=== PATIENT | female | born 1945 | race Caucasian/White ===

== ENCOUNTER → 2019-11-29 | Outpatient (CLI) | payer MEDICARE ==
--- NOTE | 2019-11-29 13:36 | US ---
EXAMINATION TYPE: US kidneys/renal and bladder DATE OF EXAM: 11/29/2019 COMPARISON: NONE CLINICAL HISTORY: N18.3 Chronic kidney disease stage III. EXAM MEASUREMENTS: Right Kidney: 11.6 x 5.9 x 5.9 cm Left Kidney: 11.1 x 4.4 x 4.4 cm Right Kidney: No hydronephrosis, cysts noted largest measuring 4.6 x 4.2 x 4.1cm Left Kidney: No hydronephrosis, cysts noted largest measuring 2.4 x 2.0 x 2.1cm Bladder: wnl, not fully distended Bilateral jets seen. There is no evidence for hydronephrosis at this point in time. No nephrolithiasis is seen. Simple ap pearing thin-walled cysts are scattered throughout both kidneys. Larger lesions incidentally noted in right kidney versus left kidney. When scanning the right kidney adjacent liver is heterogeneously hy perechoic suggesting fatty infiltration. The urinary bladder is not greatly distended. Bilateral ur eteral jets are seen. IMPRESSION: No hydronephrosis is noted bilaterally.
== END | disposition home or self-care (01) ==
LOC: RADUSWWP 12:50
PROVIDERS: ATTEND Family Medicine
DX: N18.3 Chronic kidney disease, stage 3 (moderate) (principal)
CPT/HCPCS: 76770

== ENCOUNTER → 2020-04-16 | Outpatient (CLI) | payer MEDICARE | END | disposition home or self-care (01) | LOC: LABPAT 10:32 | PROVIDERS: ATTEND Orthopaedic Surgery | DX: Z01.812 Encounter for preprocedural laboratory examination (principal); M16.11 Unilateral primary osteoarthritis, right hip; Z01.818 Encounter for other preprocedural examination | CPT/HCPCS: 87070 ==

== ENCOUNTER → 2020-04-20 | Outpatient (CLI) | payer MEDICARE ==
--- NOTE | 2020-04-20 16:55 | ECHOF ---
Referral Reason:R60.0,Localized edema Z01.818,I45.10,R00.1 MEASUREMENTS -------- HEIGHT: 167.6 cm WEIGHT: 94.8 kg BP: RVIDd: 4.2 cm (< 3.3) IVSd: 1.6 cm (0.6 - 1.1) LVIDd: 3.9 cm (3.9 - 5.3) LVPWd: 1.7 cm (0.6 - 1.1) IVSs: 1.9 cm LVIDs: 2.7 cm LVPWs: 1.7 cm LAESV Index (A-L): 25.15 ml/m Ao Diam: 2.5 cm (2.0 - 3.7) AV Cusp: 1.7 cm (1.5 - 2.6) MV EXCURSION: 18.742 mm (> 18.000) MV EF SLOPE: 61 mm/s (70 - 150) EPSS: 1.1 cm MV E Antony: 0.65 m/s MV DecT: 321 ms MV A Antony: 0.83 m/s MV E/A Ratio: 0.79 RAP: 5.00 mmHg RVSP: 20.70 mmHg FINDINGS -------- Sinus rhythm. This was a technically adequate study. The left ventricular size is normal. There is moderate concentric left ventricular hypertrophy. O verall left ventricular systolic function is normal with, an EF between 55 - 60 %. The diastolic fi lling pattern is normal for the age of the patient 10.19. The right ventricle is moderately enlarged. Normal LA size by volume 22+/-6 ml/m2. The right atrial size is normal. Interatrial and interventricular septum intact. There is no evidence of aortic regurgitation. There is no evidence of aortic stenosis. There is trace mitral regurgitation. Mild tricuspid regurgitation present. There is no evidence of pulmonary hypertension. The right v entricular systolic pressure, as measured by Doppler, is 20.70mmHg. There is no pulmonic regurgitation present. The aortic root size is normal. Normal inferior vena cava with normal inspiratory collapse consistent with estimated right atrial pre ssure of 5 mmHg. There is no pericardial effusion. CONCLUSIONS -------- 1. The left ventricular size is normal. 2. There is moderate concentric left ventricular hypertrophy. 3. Overall left ventricular systolic function is normal with, an EF between 55 - 60 %. 4. The diastolic filling pattern is normal for the age of the patient 10.19 5. The right ventricle is moderately enlarged. 6. There is trace mitral regurgitation. 7. Mild tricuspid regurgitation present. GATE KEEPER: Ariella Medellin RDCS
== END | disposition home or self-care (01) ==
LOC: RADECHMAIN 12:51
PROVIDERS: ATTEND Family Medicine
DX: Z01.818 Encounter for other preprocedural examination (principal); I08.1 Rheumatic disorders of both mitral and tricuspid valves; R00.1 Bradycardia, unspecified; I45.10 Unspecified right bundle-branch block; R60.0 Localized edema
CPT/HCPCS: 93306

== ENCOUNTER → 2020-04-27 | Outpatient (CLI) | payer MEDICARE ==
[2020-04-27 09:40] LABS: Basophils # (A) 0.1 k/uL (0-0.2); Basophils % (A) 1 %; Eosinophils # (A) 0.3 k/uL (0-0.7); Eosinophils % (A) 5 %; HCT 40.5 % (34.0-46.0); Lymphocytes # (A) 1.3 k/uL (1.0-4.8); Lymphocytes % (A) 18 %; MCH 29.6 pg (25.0-35.0); MCHC 32.2 g/dL (31.0-37.0); MCV 92.1 fL (80.0-100.0); Mean Platelet Volume 9.2; Monocytes # (A) 0.4 k/uL (0-1.0); Monocytes % (A) 6 %; Neutrophils # (A) 5.1 k/uL (1.3-7.7); Neutrophils % (A) 69 %; Platelet Count 194 k/uL (150-450); RBC 4.39 m/uL (3.80-5.40); RDW 12.6 % (11.5-15.5); WBC 7.4 k/uL (3.8-10.6)
[2020-04-27 09:43] LABS: Prothrombin Time 10.5 sec (9.0-12.0)
== END | disposition home or self-care (01) ==
LOC: LABPAT 08:24
PROVIDERS: ATTEND Orthopaedic Surgery
DX: Z01.818 Encounter for other preprocedural examination (principal); M16.11 Unilateral primary osteoarthritis, right hip
CPT/HCPCS: 36415; 80051; 85025; 85610

== ENCOUNTER 2020-05-01 09:18 | Day surgery (SDC) | payer MEDICARE ==
[2020-04-26 18:06] VITALS: BMI 33.7
--- NOTE | 2020-04-30 12:21 | HP ---
HISTORY AND PHYSICAL CHIEF COMPLAINT: Right hip and thigh pain. HISTORY OF PRESENT ILLNESS: Patient is a 75-year-old retired female who presents with progressive right hip and thigh pain for the past several years. It has worsened recently. She notes she has been limping. She also notes bilateral knee pain. She ambulates with a cane. She has been on [place] and Tylenol with partial relief. PAST MEDICAL HISTORY: Significant for Raynaud's, hypertension, arthritis. PAST SURGICAL HISTORY: Significant for hysterectomy. CURRENT MEDICATIONS: Amlodipine, gabapentin, hydrochlorothiazide, metoprolol, [place], and Tylenol. She denies drug allergies. FAMILY HISTORY: Significant cancer and Alzheimer's. SOCIAL HISTORY: Significant for previous tobacco use. 16 POINT REVIEW OF SYSTEMS: Otherwise reviewed and is noncontributory. PHYSICAL EXAMINATION: On examination, the patient is approximately 5 foot 4, 208 pounds of endomorphic habitus. HEENT exam is nonfocal. Neck is supple. Passive motion right hip, flexion 80 degrees, external rotation with hip flex 60 degrees, internal rotation 0 degrees with pain. She does walk with an antalgic gait pattern. Clinically, she has approximately 1 cm shortening of the right lower extremity compared to the left. Her distal neurovascular exam appears intact in the right lower extremity. AP of the pelvis obtained in the office show severe osteoarthrosis of the right hip with [id number] changes and significant sclerosis. IMPRESSION: 1. Right hip severe osteoarthrosis. 2. Bilateral knee osteoarthrosis. RECOMMENDATIONS: I talked to the patient at length regarding her condition and treatment options. I feel the majority of her symptoms at this point emanate from her right hip osteoarthrosis. After a thorough discussion, she opts to proceed with surgery. We will plan to proceed with right total hip arthroplasty utilizing a lateral approach. We will institute DVT prophylaxis postoperatively. Risks and benefits were discussed at length in layman's terms. MMODL / IJN: [id number] /
[~2020-05-01 09:18] MED LIST: ACETAMINOPHEN TAB 500 MG TAB PO ONE; DEXAMETHASONE SOD PHOSPHATE 10 MG/ML 1 ML VIAL IV ONE; LIDOCAINE 1% (10MG/ML) FOR IV START INTRADERMA PRN; MELOXICAM 7.5 MG TAB PO ONE; MIDAZOLAM 2 MG/2 ML VIAL IV PRN; TRANEXAMIC ACID 1,000 MG in SODIUM CHLORIDE 0.9% 100 ML IVPB ONE; fentaNYL (PF) 50 MCG/ML 2 ML AMP IVP PRN
[2020-05-01] MEDS ORDERED: ACETAMINOPHEN TAB 500 MG TAB ONE (09:25)
[2020-05-01] MEDS: LACTATED RINGERS 1,000 ML IV SCH ×2 (09:44→17:31)
[2020-05-01] MEDS ORDERED: fentaNYL (PF) 50 MCG/ML 2 ML AMP ONE (10:27)
[2020-05-01] MEDS ORDERED: TRANEXAMIC ACID 1,000 MG/10 ML VIAL ONE (10:27)
[2020-05-01] MEDS ORDERED: ROCURONIUM BROMIDE 10 MG/ML 5 ML VIAL IV ONE (10:27)
[2020-05-01] MEDS ORDERED: SUCCINYLCHOLINE CHLORIDE 100 MG/5 ML SYR IV ONE (10:27)
[2020-05-01] MEDS ORDERED: HYDROmorphone (PF) 1 MG/ML ONE (10:27)
[2020-05-01] MEDS ORDERED: MIDAZOLAM 2 MG/2 ML VIAL ONE (10:27)
[2020-05-01] MEDS ORDERED: LIDOCAINE 1% INJ 10MG/ML (20 ML MDV) ONE (10:27)
[2020-05-01] MEDS ORDERED: SODIUM CHLORIDE 0.9% 100 ML BAG ONE (10:27)
[2020-05-01] MEDS ORDERED: PROPOFOL 10 MG/ML 20 ML VIAL IV ONE (10:27)
[2020-05-01] MEDS ORDERED: ceFAZolin 3,000 MG in SODIUM CHLORIDE 0.9% IRRIGATIO 3,000 ML IRRIGATION ONE (11:06)
[2020-05-01] MEDS ORDERED: LACTATED RINGERS 1,000 ML IV ONE ×2 (11:57→15:40)
[2020-05-01] MEDS ORDERED: HYDROcodone/APAP 5-325MG 1 EACH TAB PO PRN (12:21)
[2020-05-01] MEDS ORDERED: ACETAMINOPHEN TAB 325 MG TAB PO PRN ×2 (12:21→20:12)
[2020-05-01] MEDS ORDERED: MAGNESIUM HYDROXIDE 2,400 MG/10 ML CUP PO PRN (12:21)
[2020-05-01] MEDS ORDERED: ONDANSETRON 4 MG/2 ML VIAL IVP PRN (12:21)
[2020-05-01] MEDS ORDERED: traMADol 50 MG TAB PO PRN (12:21)
[2020-05-01] MEDS ORDERED: HYDROmorphone 0.5 MG/0.5 ML SYRINGE IVP PRN (12:21)
[2020-05-01] MEDS ORDERED: NALOXONE 0.4 MG/ML 1 ML VIAL IV PRN (12:21)
--- NOTE | 2020-05-01 12:48 | P.OP ---
Date of Procedure: 05/01/20 Preoperative Diagnosis: Right hip severe osteoarthrosis Postoperative Diagnosis: Same Procedure(s) Performed: Right total hip arthroplastylateral approachpress-fit Implants: Depuy Corail size 12 standard press-fit collared femoral stem, 36+1.5 cobalt chrome femoral head, 52 mm Newton acetabular shell with neutral polyethylene liner. Anesthesia: BAA Surgeon: Marquis Kendall Lacquer Sprayer #1: Delmar Young Estimated Blood Loss (ml): 300 Pathology: other (Femoral head) Condition: stable Disposition: PACU Indications for Procedure: Patient is a 75-year-old female presents with progressive right hip and thigh pain secondary to osteoporosis despite conservative measures. A discussion of the risks and benefits of operative intervention versus continued conservative measures was made with patient. She elected to proceed with surgery. Operative risks to include infection, neurovascular injury, development of blood clots, possible fracture, possible leg length discrepancy, possible instability need for subsequent procedures was discussed. Informed consent was obtained. Operative Findings: As below Description of Procedure: The patient was brought to the operating room, and after induction of spinal anesthesia was placed in a lateral decubitus position. The bony prominences were appropriately padded. The pelvis was stable perpendicular to the floor wi th a pegboard. The right lower extremity was prepped and draped in normal fashion. A 12 cm incision was then made centered over the greater trochanter extending superiorly to level the ASIS and distally in line with the femoral shaft. The skin and subcutaneous tissues were divided sharply. Electrocautery was used for hemostasis. The fascia derik and gluteus patti fascia was split in line with the skin incision. The muscle fibers were bluntly dissected proximally. A self-retaining retractor was placed. The anterior and posterior margins of the gluteus medius muscles identified and the anterior two thirds was detached from the greater trochanter with electrocautery. The gluteus minimus tendon was identified and detached in a similar fashion. A wide capsulotomy was performed. The femoral neck fracture was identified in the lower neck cut was made approximately 1 1/2 cm above the level of the lesser trochanter with a sagittal saw at a 45 the shaft. The head was then extracted with a corkscrew. Attention was then paid towards preparing the acetabular. Anterior and posterior retractors were placed. The remaining capsular labral tissues debrided sharply clearly defining the acetabular margins. Began reaming with a 47 mm reamer taking care to initially medialize, then reaming at 45 of abduction and 20 of anteversion. Sequential reaming is performed up to 51 mm. This was down to bleeding bony surface. A trial 52 mm acetabular shell was inserted at 45 of abduction and 20 of anteversion. This was fully seated. There was good rim fit and stability. A neutral polyethylene liner was then impacted. Care taken to avoid any soft tissue interposition. Attention was then paid towards preparing the proximal femur. A box chisel was used to open the metaphyseal region. A canal finder was used to find the femoral canal. Sequential broaching was performed up to a size 12. This is placed in 15 of anteversion with the leg perpendicular floor judging off the trans-epicondylar axis. There is good rotational stability. A calcar mill was used to fashion the medial calcar. A trial standard neck along with a 36 mm + 1.5 trial head was placed. The hip was gently reduced. It was taken through range of motion. I felt to be stable in flexion and extension with internal and external rotation. I felt there was adequate anglican of soft tissue tension. The hip was gently dislocated. The trial components removed. Pulsatile lavage was utilized. The final size 12 standard collared femoral stem was inserted again with the leg perpendicular to the floor in 15 of anteversion. Again there was good rotational stability. A 36 mm + 1.5 cobalt chrome femoral head was gently impacted. The hip was gently reduced. Again it was taken through motion and felt to be stable in flexion and extension with internal and external rotation. Pulsatile lavage was again utilized. With the leg in abduction the gluteus minimus and medius tendons reattached to the greater trochanter with #2 Ethibond suture. There was minimal drainage therefore a deep drain was not placed. The fascia derik and gluteus patti fascia was closed with #2 Ethibond suture. The subcutaneous tissues were reapproximated interrupted 2-0 Vicryl sutures. The skin was reapproximated with 3-0 subcuticular strata fix suture. Skin tape and adhesive was applied. A sterile dressing was applied. The patient was awoken from sedation and transferred to recovery room in good condition. Blood loss was estimated 300 mL. No complications were incurred. Sponge and needle counts were correct in the case. Richardson ZAMORA assisted during the major composes case to include exposure, implantation, and closure.
[2020-05-01] MEDS: HYDROmorphone 0.5 MG/0.5 ML SYRINGE IVP PRN ×4 (12:50→15:33)
--- NOTE | 2020-05-01 13:09 | XR ---
EXAMINATION TYPE: XR Hip Limited RT DATE OF EXAM: 05/01/2020 COMPARISON: NONE HISTORY: Postop TECHNIQUE: One view submitted. FINDINGS: There is postsurgical change in near anatomic alignment. There is soft tissue edema and emphysema. S urgical clips inferior to the right pubic ramus. Correlate clinically. IMPRESSION: 1. Postoperative change. Appears in near-anatomic alignment.
[2020-05-01] MEDS: HYDROcodone/APAP 5-325MG 1 EACH TAB PO PRN ×2 (17:29→22:29)
[2020-05-01] MEDS ORDERED: SENNOSIDES-DOCUSATE SODIUM 1 EACH TAB PO SCH (21:00)
[2020-05-01] MEDS: GABAPENTIN 300 MG CAP PO SCH (22:30)
--- NOTE | 2020-05-02 00:13 | P.CONS ---
History of Present Illness - Reason for Consult Consult date: 05/01/20 medical management post op Requesting physician: Marquis Kendall - Chief Complaint right hip arthroplasty - History of Present Illness 75-year-old female with hypertension, remote history of DVT over 35 years ago Patient comes in for scheduled right hip arthroplasty due to severe osteoarthritis. Patient failed conservative management for pain control. Currently patient is seen postoperatively for medical management due to hypotension. Patient is asymptomatic tolerated procedure well denies any chest pain or trouble breathing denies any dizziness or lightheadedness she tolerated by mouth intake she had passed bowel movement and urine. Denies any abdominal pain nausea or vomiting denies any fevers or chills. She feels fine after surgery she tolerated by mouth intake. Review of Systems Pertinent positives as noted in HPI. All other systems were reviewed and are negative Past Medical History Past Medical History: Cancer, Deep Vein Thrombosis (DVT), Hypertension, Osteoarthritis (OA), Renal Disease Additional Past Medical History / Comment(s): hx. skin cancer on head, DVT in leg >35 yrs. ago, stage 3 kidney disease-currently stable-sees DR. MAYFIELD History of Any Multi-Drug Resistant Organisms: None Reported Past Surgical History: Adenoidectomy, Back Surgery, Section, Hysterectomy, Tonsillectomy Additional Past Surgical History / Comment(s): Laminectomy, vein stripping, ganglion cyst removed Past Anesthesia/Blood Transfusion Reactions: No Reported Reaction Additional Past Anesthesia/Blood Transfusion Reaction / Comm: brother had some kind of problem w/ether years ago Past Psychological History: Anxiety, Depression Smoking Status: Former smoker Past Alcohol Use History: Occasional Additional Past Alcohol Use History / Comment(s): quit smoking 35 yrs. ago, smoked 25 yrs Past Drug Use History: None Reported - Past Family History Father Family Medical History: Cancer Medications and Allergies Home Medications Medication Instructions Recorded Confirmed Type Acetaminophen [Tylenol Arthritis] 650 mg PO Q6H PRN 04/26/20 05/01/20 History Citalopram Hydrobromide 20 mg PO DAILY 04/26/20 05/01/20 History [Citalopram HBr] Gabapentin [Neurontin] 300 mg PO BID 04/26/20 05/01/20 History HYDROcodone/APAP 5-325MG [Shanks 1 tab PO BID 04/26/20 05/01/20 History 5-325] Metoprolol Succinate (ER) [Toprol 100 mg PO DAILY 04/26/20 05/01/20 History Xl] Nystatin 100,000 Unit/gm Powd 1 applic TOPICAL BID PRN 04/26/20 05/01/20 History [Mycostatin Powder] amLODIPine [Norvasc] 7.5 mg PO DAILY 04/26/20 05/01/20 History hydroCHLOROthiazide [Hydrodiuril] 25 mg PO DAILY 04/26/20 05/01/20 History Allergies Allergy/AdvReac Type Severity Reaction Status Date / Time No Known Allergies Allergy Verified 05/01/20 09:29 Physical Exam Vitals: Vital Signs Temp Pulse Resp BP BP Pulse Ox 05/01/20 16:52 97.7 F 82 16 143/73 100 05/01/20 16:30 53 L 14 122/58 100 05/01/20 15:58 49 L 16 120/58 99 05/01/20 15:30 50 L 111/59 100 05/01/20 15:00 51 L 16 111/59 99 05/01/20 14:30 50 L 16 114/57 98 05/01/20 13:30 49 L 16 118/58 100 05/01/20 13:15 51 L 16 115/59 100 05/01/20 13:00 51 L 16 118/60 100 05/01/20 12:45 50 L 16 114/58 98 05/01/20 12:41 97.1 F L 53 L 16 121/58 98 05/01/20 09:32 98.1 F 55 L 16 133/58 94 L Intake and Output 05/01/20 05/01/20 05/01/20 06:59 14:59 22:59 Intake Total 2050 Output Total 300 Balance 175 Intake: IV 2050 Output: Estimated Blood Loss 300 Other: Weight 94.7 kg 94.7 kg Constitutional: No acute distress, conversant, pleasant Eyes: Anicteric sclerae, moist conjunctiva, Pupils equal round reactive to light ENMT: NC/AT Oropharynx clear, no erythema, or exudates Neck: Supple, FROM, no masses, or JVD No carotid bruits No thyromegaly Lungs: Clear to auscultation Clear to percussion Normal respiratory effort, no accessory muscle use Cardiovascular: Heart regular in rate and rhythm, No murmurs, gallops, or rubs No peripheral edema Abdominal: Soft Nontender, no guarding, rebound or rigidity Abdomen moving with respiration Normoactive bowel sounds No hepatomegaly, No splenomegaly No palpable mass No abdominal wall hernia noted Skin: Normal temperature, tone, texture, turgor No induration No subcutaneous nodules No rash, lesions No ulcers Extremities: Surgical dressing seems to be dry and intact and clean No digital cyanosis No clubbing Pedal pulses intact and symmetrical Radial pulses intact and symmetrical No calf tenderness Psychiatric: Alert and oriented to person, place and time Appropriate affect fair judgement Neuro Muscles Strength 5/5 bilateral upper extremity Limited exam over bilateral lower extremity due to recent surgery and fear of pain upon movement Sensation to light touch grossly present throughout Cranial nerves II-XII grossly intact No focal sensory deficits Lymphatics: no palpable cervical or supraclavicular , or inguinal lymph nodes Assessment and Plan Assessment: Postoperative Hypotension currently asymptomatic Supportive care Gentle IV fluid hydration Hold BP meds for today Close monitoring of vital signs Resume blood pressure meds in the morning with hold parameters the patient continues to be hypotensive Right hip osteoarthritis status post right total hip arthroplasty postoperative day 0 Pain management and DVT prophylaxis per orthopedics currently on Lovenox Follow-up renal function and CBC in the morning Patient is full code Thank you for allowing us to participate in the care of this patient. Do not hesitate to contact us with questions. Someone can be reached from the [facility] hospitalist group at all hours of the day at [phone].
[2020-05-02 03:56] VITALS: RESP 18
[2020-05-02 07:14] VITALS: BP 119/54; PULSE 67
[2020-05-02] MEDS: GABAPENTIN 300 MG CAP PO SCH (07:40)
[2020-05-02] MEDS: HYDROcodone/APAP 5-325MG 1 EACH TAB PO PRN ×2 (07:40→12:51)
[2020-05-02] MEDS ORDERED: ENOXAPARIN 40 MG/0.4 ML SYRINGE SQ SCH (09:00)
[2020-05-02] MEDS ORDERED: amLODIPine 2.5 MG TAB PO SCH (09:00)
[2020-05-02] MEDS ORDERED: CITALOPRAM HYDROBROMIDE 20 MG TAB PO SCH (09:00)
[2020-05-02] MEDS ORDERED: hydroCHLOROthiazide 25 MG TAB PO SCH (09:00)
[2020-05-02] MEDS ORDERED: METOPROLOL SUCCINATE (ER) 100 MG TAB.ER.24H PO SCH (09:00)
[2020-05-02 09:53] LABS: Calcium 8.9 mg/dL (8.4-10.2)
[2020-05-02 10:04] LABS: Basophils % (A) 0 %; Eosinophils % (A) 0 %; HCT 28.8 % (34.0-46.0); Lymphocytes # (A) 0.7 k/uL (1.0-4.8); Lymphocytes % (A) 7 %; MCH 30.8 pg (25.0-35.0); MCHC 33.5 g/dL (31.0-37.0); MCV 91.7 fL (80.0-100.0); Mean Platelet Volume 10.3; Monocytes # (A) 0.5 k/uL (0-1.0); Monocytes % (A) 5 %; Neutrophils # (A) 9.8 k/uL (1.3-7.7); Neutrophils % (A) 88 %; Platelet Count 158 k/uL (150-450); RBC 3.14 m/uL (3.80-5.40); RDW 12.5 % (11.5-15.5); WBC 11.1 k/uL (3.8-10.6)
[2020-05-02 10:11] LABS: HGB 9.7 gm/dL (11.4-16.0)
--- NOTE | 2020-05-02 11:22 | P.PN ---
Subjective Progress Note Date: 05/02/20 Principal diagnosis: status post right total hip arthroplasty Patient evaluated today at bedside, she is resting comfortably. Pain is well- controlled. She's done very well with physical therapy. She denies any nausea vomiting. Objective - Vital Signs Vital signs: Vital Signs Temp 99.5 F 05/02/20 10:04 Pulse 67 05/02/20 06:46 Resp 18 05/02/20 06:46 BP 119/54 05/02/20 06:46 Pulse Ox 95 05/02/20 06:46 Intake & Output 05/01/20 05/02/20 05/02/20 18:59 06:59 18:59 Intake Total 2050 Output Total 300 Balance 1751 Weight 94.7 kg Intake: IV 2050 Output: Estimated Blood Loss 300 Other: Voiding Method Toilet # Voids 2 - Exam Right lower extremity: Incision is clean, dry, and intact. The exofin fusion tape is in good condition. There is minimal soft tissue swelling and ecchymosis surrounding the medial and lateral aspects of the incision. Calf is soft, no tenderness with palpation. Plantar flexion, dorsiflexion, EHL, FHL are intact. Sensory exam to light touch throughout the extremity is intact, dorsal pedis pulses 2+. - Labs CBC & Chem 7: 05/02/20 08:50 05/02/20 08:50 Labs: Abnormal Lab Results - Last 24 Hours (Table) 05/02/20 05/02/20 Range/Units 08:50 08:50 WBC 11.1 H (3.8-10.6) k/uL RBC 3.14 L (3.80-5.40) m/uL Hgb 9.7 L D (11.4-16.0) gm/dL Hct 28.8 L (34.0-46.0) % Neutrophils # 9.8 H (1.3-7.7) k/uL Lymphocytes # 0.7 L (1.0-4.8) k/uL Sodium 136 L (137-145) mmol/L Chloride 108 H (98-107) mmol/L BUN 29 H (7-17) mg/dL Creatinine 1.05 H (0.52-1.04) mg/dL Glucose 165 H (74-99) mg/dL Assessment and Plan Assessment: Status post right total hip arthroplasty Plan: Pain control, discharge home on oral medication GI and DVT prophylaxis, aspirin 81 mg twice a day wound care instructions discussed Physical therapy and nursing Medical recommendations Plan for discharge home today Time with Patient: Less than 30
--- NOTE | 2020-05-02 11:26 | P.DS ---
Providers Date of admission: 05/01/2020 Expected date of discharge: 05/02/20 Attending physician: Marquis Kendall Consults: 05/01/20 12:24 Consult Physician Routine Consulting Provider: Zachary Figueroa Reason/Comments: Medical Management Do you want consulting provider notified?: Yes Primary care physician: Zachary Figueroa Hospital Course: Date of admission: 05/01/2020 Date of discharge: 05/02/2020 Admission diagnosis: Status post right total knee arthroplasty Discharge diagnosis: Same Attending physician: Dr. Kendall Surgical procedures: Right total knee arthroplasty Brief history: Patient is a 75-year-old female with a history of progressive primary right knee osteoarthritis. At this point patient has failed conservative treatment measures and has opted to proceed with a elective right total knee arthroplasty. Hospital course: Details of patient's surgery can be found in operative report. Patient tolerated the procedure well and was subsequently transported to orthopedic floor. Patient's orthopeidc and medical care was provided daily. Patient had daily laboratory tests performed for evaluation of overall blood counts. Patient had daily physical therapy to include strengthening range of motion as well as education with walker ambulation. Patient was treated with Lovenox for their postoperative DVT prophylaxis during their inpatient stay. Jethro ledesma was noted to have a relatively uneventful postoperative course. Patient reported satisfactory pain control with oral pain medications by postoperative day 0. Patient showed satisfactory progress with physical therapy. Patient moved steadily through the program and had no difficulty meeting the goals by postoperative day 1. Given patient's otherwise satisfactory course and having met physical therapy goals, plan is to discharge patient home on postoperative day 1. Discharge condition/disposition: Patient will be discharged home in stable condition. Discharge medications: Instructions are given on resumption of patient's normal daily medications per primary care recommendation, in addition patient will be prescribed [place] 5 mg/325 mg, Colace 100 mg, aspirin 81 mg. Discharge instructions: 1. Wound care and infection precautions, keep incision dry and covered while showering, no lotions, creams, moisturizers. No soaking, tubs, pools, hottubs. Do not scrub over the incision. 2. Weight-bear as tolerated with walker / cane until follow-up. 3. Ice and elevate when necessary. Do not exceed 20 minutes per hour with ice pack. 4. Utilize compression sleeve until seen at first follow up appointment. 5. Visiting nursing care. 6. Home physical therapy. 7. Pain meds and anticoagulants per prescription. 8. Pain medication has potential to cause constipation. Increase oral fluid and fiber intake. Contact primary care provider if you have not had a bowel movement within 48 hours after discharge 9. No anti-inflammatory medication until discussed at first post operative v isit, this including Motrin, Aleve, Mobic, Diclofenac. 10. Follow up in office at 2 weeks postop with Richardson Young PA-C 11. Follow up with your primary care doctor 7-10 days after discharge. 12. Contact [facility] with any questions, . Procedures: Right total hip arthroplasty Patient Condition at Discharge: Good Plan - Discharge Summary Discharge Rx Participant: No New Discharge Prescriptions: New Aspirin [Adult Low Dose Aspirin EC] 81 mg PO BID #60 tablet. Docteresate [Colace] 100 mg PO DAILY #30 capsule Hydrocodone/Acetaminophen [[place] 5-325] 1 - 2 each PO Q6HR PRN #56 tab PRN Reason: Pain No Action Nystatin 100,000 Unit/gm Powd [Mycostatin Powder] 1 applic TOPICAL BID PRN PRN Reason: Skin Irritation hydroCHLOROthiazide [Hydrodiuril] 25 mg PO DAILY amLODIPine [Norvasc] 7.5 mg PO DAILY Metoprolol Succinate (ER) [Toprol Xl] 100 mg PO DAILY Gabapentin [Neurontin] 300 mg PO BID Citalopram Hydrobromide [Citalopram HBr] 20 mg PO DAILY Acetaminophen [Tylenol Arthritis] 650 mg PO Q6H PRN PRN Reason: Pain Discharge Medication List Acetaminophen [Tylenol Arthritis] 650 mg PO Q6H PRN 04/26/20 [History] Citalopram Hydrobromide [Citalopram HBr] 20 mg PO DAILY 04/26/20 [History] Gabapentin [Neurontin] 300 mg PO BID 04/26/20 [History] Metoprolol Succinate (ER) [Toprol Xl] 100 mg PO DAILY 04/26/20 [History] Nystatin 100,000 Unit/gm Powd [Mycostatin Powder] 1 applic TOPICAL BID PRN 04/26/20 [History] amLODIPine [Norvasc] 7.5 mg PO DAILY 04/26/20 [History] hydroCHLOROthiazide [Hydrodiuril] 25 mg PO DAILY 04/26/20 [History] Aspirin [Adult Low Dose Aspirin EC] 81 mg PO BID #60 tablet. 05/02/20 [Rx] Docusate [Colace] 100 mg PO DAILY #30 capsule 05/02/20 [Rx] Hydrocodone/Acetaminophen [[place] 5-325] 1 - 2 each PO Q6HR PRN #56 tab 05/02/20 [Rx] Follow up Appointment(s)/Referral(s): Delmar Young PAC [PHYSICIAN DIE LAY OUT WORKER] - 05/23/20 3:10 pm [facility] Visiting Nurse, [NON-STAFF] - As Needed Zachary Figueroa [Primary Care Provider] - 1 Week Activity/Diet/Wound Care/Special Instructions: Orthopedic Discharge Instructions: 1. Wound care and infection precautions, keep incision dry and covered while showering, no lotions, creams, moisturizers. No soaking, pools, hot tubs. Do not scrub over incision. 2. Weight-bear as tolerated with walker / cane until follow-up. 3. Ice and elevate when necessary. Do not exceed 20 minutes per hour with ice pack. 4. Utilize compression sleeve until seen at first follow up appointment. 5. Pain meds and anticoagulants per prescription. 6. Pain medication has potential to cause constipation. Increase oral fluid and fiber intake. Contact primary care provider if you have not had a bowel movement within 48 hours after discharge. 7. No anti-inflammatory medication until discussed at first post operative visit, this including Motrin, Aleve, Mobic, Diclofenac. 8. Follow up in office at 2 weeks postop with Richardson Young PA-C 9. Follow up with your primary care doctor 7-10 days after discharge. 10. Contact [facility] with any questions, . Discharge Disposition: HOME WITH HOME HEALTH SERVICES
[2020-05-02 11:53] VITALS: TEMP 98.3
[2020-05-02] MEDS: LACTATED RINGERS 1,000 ML IV SCH (11:54)
--- NOTE | 2020-05-02 13:17 | P.PN ---
Subjective Progress Note Date: 05/02/20 patient seen and examined. No acute events overnight. Patient reports well controlled pain in her hip. She denies any chest, shortness breath or palpitations. No nausea or vomiting. No fever or chills. Objective - Vital Signs Vital signs: Vital Signs Temp 98.3 F 05/02/20 11:52 Pulse 67 05/02/20 06:46 Resp 18 05/02/20 06:46 BP 119/54 05/02/20 06:46 Pulse Ox 95 05/02/20 06:46 Intake & Output 05/01/20 05/02/20 05/02/20 18:59 06:59 18:59 Intake Total 2050 Output Total 300 Balance 1751 Weight 94.7 kg Intake: IV 2050 Output: Estimated Blood Loss 300 Other: Voiding Method Toilet # Voids 2 - Exam General: [non toxic], [no distress], [appears at stated age] Derm: [warm], [dry] Head: [atraumatic], [normocephalic], [symmetric] Eyes: [EOMI], [no lid lag], [anicteric sclera] Mouth: [no lip lesion], [mucus membranes moist] Cardiovascular: [S1S2 reg], [no murmur], [positive DP pulse bilateral], Lungs: [CTA bilateral], [no rhonchi, no rales] , [no accessory muscle use] Abdominal: [soft], [ nontender to palpation], [no guarding], [no appreciable organomegaly] Ext: [no gross muscle atrophy], [no edema], [no contractures] Neuro: [no focal neuro deficits] Psych: [Alert], [oriented], [appropriate affect] - Labs CBC & Chem 7: 05/02/20 08:50 05/02/20 08:50 Labs: Abnormal Lab Results - Last 24 Hours (Table) 05/02/20 05/02/20 Range/Units 08:50 08:50 WBC 11.1 H (3.8-10.6) k/uL RBC 3.14 L (3.80-5.40) m/uL Hgb 9.7 L D (11.4-16.0) gm/dL Hct 28.8 L (34.0-46.0) % Neutrophils # 9.8 H (1.3-7.7) k/uL Lymphocytes # 0.7 L (1.0-4.8) k/uL Sodium 136 L (137-145) mmol/L Chloride 108 H (98-107) mmol/L BUN 29 H (7-17) mg/dL Creatinine 1.05 H (0.52-1.04) mg/dL Glucose 165 H (74-99) mg/dL Assessment and Plan Assessment: low-grade fever Leukocytosis Acute blood loss anemia acute kidney injury resolved: Hypotension Patient is low-grade fever of 100.2 Fahrenheit with mild leukocytosis of 11.1. This is likely reactive less likely infectious. CBC shows hemoglobin of 9.7. This is an expected results of surgery. Her creatinine is borderline at 1.05. Patient encouraged to increase hydration. Repeat CBC in 3 days. Follow-up results with PCP. Patient is medically cleared for discharge.
== END 2020-05-02 13:14 | disposition home health service (06) ==
LOC: OR 09:18 → 4SSUR 16:26 → OR 05-02 13:14
PROVIDERS: ATTEND Orthopaedic Surgery
DX: M16.11 Unilateral primary osteoarthritis, right hip (principal); M81.0 Age-related osteoporosis without current pathological fracture; M17.0 Bilateral primary osteoarthritis of knee; I12.9 Hypertensive chronic kidney disease with stage 1 through stage 4 chronic kidney disease, or unspecified chronic kidney disease; N17.9 Acute kidney failure, unspecified; N18.3 Chronic kidney disease, stage 3 (moderate); D72.829 Elevated white blood cell count, unspecified; D62 Acute posthemorrhagic anemia; F32.9 Major depressive disorder, single episode, unspecified; F41.9 Anxiety disorder, unspecified; I73.00 Raynaud's syndrome without gangrene; E66.9 Obesity, unspecified; Z68.33 Body mass index [BMI] 33.0-33.9, adult; G62.9 Polyneuropathy, unspecified; G89.29 Other chronic pain; M54.5 Low back pain; E55.9 Vitamin D deficiency, unspecified; Z79.891 Long term (current) use of opiate analgesic; Z79.899 Other long term (current) drug therapy; Z90.710 Acquired absence of both cervix and uterus; Z98.891 History of uterine scar from previous surgery; Z90.89 Acquired absence of other organs; Z98.890 Other specified postprocedural states; Z86.718 Personal history of other venous thrombosis and embolism; Z85.828 Personal history of other malignant neoplasm of skin; Z87.891 Personal history of nicotine dependence; Z82.0 Family history of epilepsy and other diseases of the nervous system; Z83.49 Family history of other endocrine, nutritional and metabolic diseases; Z80.0 Family history of malignant neoplasm of digestive organs; Z82.5 Family history of asthma and other chronic lower respiratory diseases; Z82.69 Family history of other diseases of the musculoskeletal system and connective tissue; Z81.1 Family history of alcohol abuse and dependence; Z80.9 Family history of malignant neoplasm, unspecified; Z81.8 Family history of other mental and behavioral disorders
CPT/HCPCS: 97110; 97161; 97535; 97166; 86900; 86901; 80048; 85025; 86850; 88300; 73501; 36415; 27130; C1776; J2250; J1100; J0690 ×3; J2001; J1650; J3010; J1170 ×2; J0330; J2704

== ENCOUNTER 2021-12-04 00:28 | Emergency (ER) | payer MEDICARE ==
[2021-12-04 00:37] VITALS: RESP 16; TEMP 97.7
[2021-12-04] MEDS ORDERED: MORPHINE SULFATE 4 MG/ML SYRINGE IM STA (00:52)
--- NOTE | 2021-12-04 01:01 | ED ---
Lower Extremity Injury HPI - General Source: patient, EMS, RN notes reviewed Mode of arrival: EMS Limitations: no limitations - History of Present Illness MD Complaint: knee injury Onset/Timin -: hour(s) Injury: Leg: Right, Knee: Right Type of Injury: blunt Place: home Severity: severe Severity scale (1-10): 10 Improves With: nothing Worsens With: movement, palpation Context: direct blow Associated Symptoms: unable to bear weight Treatments Prior to Arrival: other <Fer Barajas - Last Filed: 12/04/21 03:44> - General Source: RN notes reviewed, old records reviewed Limitations: no limitations <Beltran Keys - Last Filed: 12/06/21 05:23> - General Chief Complaint: Extremity Injury, Lower Stated Complaint: Fall Time Seen by Provider: 12/04/21 00:45 - History of Present Illness Initial Comments: This is a 76-year-old female to the emergency department for evaluation. Patient has significant fall fall on the knee with significant amount of pain. Patient is by EMS in significant distress secondary to knee pain. Patient unable to ambulate. No other injury noted from the patient's complaining of severe right knee pain (Beltran Keys) - Related Data Home Medications Medication Instructions Recorded Confirmed Acetaminophen [Tylenol Arthritis] 650 mg PO Q6H PRN 04/26/20 05/01/20 Citalopram Hydrobromide 20 mg PO DAILY 04/26/20 05/01/20 Gabapentin [Neurontin] 300 mg PO BID 04/26/20 05/01/20 Metoprolol Succinate (ER) [Toprol 100 mg PO DAILY 04/26/20 05/01/20 XL] Nystatin 100,000 Unit/gm Powd 1 applic TOPICAL BID PRN 04/26/20 05/01/20 [Mycostatin Powder] amLODIPine [Norvasc] 7.5 mg PO DAILY 04/26/20 05/01/20 hydroCHLOROthiazide [Hydrodiuril] 25 mg PO DAILY 04/26/20 05/01/20 Previous Rx's Medication Instructions Recorded Aspirin [Adult Low Dose Aspirin EC] 81 mg PO BID #60 tablet. 05/02/20 Docusate [Colace] 100 mg PO DAILY #30 capsule 05/02/20 Hydrocodone/Acetaminophen [[place] 1 - 2 each PO Q6HR PRN #56 tab 05/02/20 5-325] Allergies Allergy/AdvReac Type Severity Reaction Status Date / Time No Known Allergies Allergy Verified 12/04/21 00:34 Review of Systems ROS Other: All systems not noted in ROS Statement are negative. <Fer Barajas - Last Filed: 12/04/21 03:44> ROS Other: All systems not noted in ROS Statement are negative. <Beltran Keys - Last Filed: 12/06/21 05:23> ROS Statement: Those systems with pertinent positive or pertinent negative responses have been documented in the HPI. Past Medical History Additional Past Medical History / Comment(s): hx. skin cancer on head, DVT in leg >35 yrs. ago, stage 3 kidney disease-currently stable-sees DR. MAYFIELD History of Any Multi-Drug Resistant Organisms: None Reported Past Surgical History: Adenoidectomy, Back Surgery, Section, Hysterectomy, Tonsillectomy Additional Past Surgical History / Comment(s): Laminectomy, vein stripping, ganglion cyst removed Past Anesthesia/Blood Transfusion Reactions: No Reported Reaction Past Psychological History: No Psychological Hx Reported Smoking Status: Former smoker Past Alcohol Use History: Occasional Past Drug Use History: None Reported <Fer Barajas - Last Filed: 12/04/21 03:44> General Exam Limitations: no limitations General appearance: alert, in distress Head exam: Present: atraumatic, normocephalic, normal inspection Eye exam: Present: normal appearance, PERRL, EOMI. Absent: scleral icterus, conjunctival injection, periorbital swelling ENT exam: Present: normal exam, normal oropharynx, mucous membranes moist Neck exam: Present: normal inspection. Absent: tenderness, meningismus, lymphadenopathy Respiratory exam: Present: normal lung sounds bilaterally. Absent: respiratory distress, wheezes, rales, rhonchi, stridor Cardiovascular Exam: Present: regular rate, normal rhythm, normal heart sounds. Absent: systolic murmur, diastolic murmur, rubs, gallop, clicks GI/Abdominal exam: Present: soft, normal bowel sounds. Absent: distended, tenderness, guarding, rebound, rigid Extremities exam: Present: normal inspection, tenderness, normal capillary refill. Absent: full ROM, pedal edema, joint swelling, calf tenderness Right Hip exam: Present: normal inspection Upper Leg exam: Present: tenderness Knee exam: Present: tenderness, swelling, ecchymosis. Absent: full ROM, abrasion, laceration, deformity, erythema, effusion Ankle exam: Present: normal inspection, full ROM. Absent: tenderness, swelling, abrasion Foot/Toe exam: Present: normal inspection, full ROM. Absent: tenderness Neurovascular tendon exam: Present: no vascular compromise. Absent: pulse deficit, abnormal cap refill, motor deficit, sensory deficit, tendon deficit, extremity cold to touch, pallor Gait: not tested/not observed Back exam: Present: normal inspection Neurological exam: Present: alert, oriented X3, CN II-XII intact Psychiatric exam: Present: normal affect, normal mood Skin exam: Present: warm, dry, intact, normal color. Absent: rash <Fer Barajas - Last Filed: 12/04/21 03:44> General appearance: alert, in no apparent distress Head exam: Present: atraumatic, normocephalic, normal inspection Eye exam: Present: normal appearance, PERRL, EOMI. Absent: scleral icterus, conjunctival injection, periorbital swelling ENT exam: Present: normal exam, mucous membranes moist Neck exam: Present: normal inspection. Absent: tenderness, meningismus, lymphadenopathy Respiratory exam: Present: normal lung sounds bilaterally. Absent: respiratory distress, wheezes, rales, rhonchi, stridor Cardiovascular Exam: Present: regular rate, normal rhythm, normal heart sounds. Absent: systolic murmur, diastolic murmur, rubs, gallop, clicks GI/Abdominal exam: Present: soft, normal bowel sounds. Absent: distended, tenderness, guarding, rebound, rigid Extremities exam: Present: normal inspection, full ROM, normal capillary refill. Absent: tenderness, pedal edema, joint swelling, calf tenderness Back exam: Present: normal inspection Neurological exam: Present: alert, oriented X3, CN II-XII intact Psychiatric exam: Present: normal affect, normal mood Skin exam: Present: warm, dry, intact, normal color. Absent: rash <Beltran Keys - Last Filed: 12/06/21 05:23> Course Vital Signs 12/04/21 12/04/21 12/04/21 00:34 03:31 04:22 Temperature 97.7 F Pulse Rate 78 70 65 Respiratory 16 16 16 Rate Blood Pressure 145/77 89/43 130/69 O2 Sat by Pulse 97 97 100 Oximetry Procedures - Orthopedic Splinting/Casting Injury #1 Side: right Lower Extremity Immobilizer: knee immobilizer <Fer Barajas - Last Filed: 12/04/21 03:44> Medical Decision Making - Lab Data Result diagrams: 12/04/21 03:14 12/04/21 03:14 <Fer Barajas - Last Filed: 12/04/21 03:44> - Lab Data Result diagrams: 12/04/21 03:14 12/04/21 03:14 <Beltran Keys - Last Filed: 12/06/21 05:23> - Medical Decision Making Case discussed in detail with hank from orthopedics.. Knee immobilizer applied. Distal neurovascular status intact. Case discussed in detail with the accepting physician at [facility]. Dr. Perez is the consulting trauma physician. The case was discussed in detail with ED attending physician. Presentation, luz sanders, treatment plan discussed in detail. (Fer Barajas) - Lab Data Lab Results 12/04/21 12/04/21 12/04/21 Range/Units 03:14 03:14 03:14 WBC 19.3 H (3.8-10.6) k/uL RBC 3.84 (3.80-5.40) m/uL Hgb 11.9 (11.4-16.0) gm/dL Hct 34.7 (34.0-46.0) % MCV 90.3 (80.0-100.0) fL MCH 31.0 (25.0-35.0) pg MCHC 34.3 (31.0-37.0) g/dL RDW 12.7 (11.5-15.5) % Plt Count 220 (150-450) k/uL MPV 9.2 Neutrophils % 87 % Lymphocytes % 7 % Monocytes % 5 % Eosinophils % 0 % Basophils % 0 % Neutrophils # 16.8 H (1.3-7.7) k/uL Lymphocytes # 1.4 (1.0-4.8) k/uL Monocytes # 1.0 (0-1.0) k/uL Eosinophils # 0.1 (0-0.7) k/uL Basophils # 0.0 (0-0.2) k/uL PT 11.1 (9.0-12.0) sec INR 1.0 (<1.2) APTT 22.2 (22.0-30.0) sec Sodium 137 (137-145) mmol/L Potassium 3.6 (3.5-5.1) mmol/L Chloride 106 (98-107) mmol/L Carbon Dioxide 20 L (22-30) mmol/L Anion Gap 11 mmol/L BUN 33 H (7-17) mg/dL Creatinine 0.99 (0.52-1.04) mg/dL Est GFR (CKD-EPI)AfAm 64 (>60 ml/min/1.73 sqM) Est GFR (CKD-EPI)NonAf 55 (>60 ml/min/1.73 sqM) Glucose 147 H (74-99) mg/dL Calcium 9.2 (8.4-10.2) mg/dL Total Bilirubin 0.8 (0.2-1.3) mg/dL AST 28 (14-36) U/L ALT 15 (4-34) U/L Alkaline Phosphatase 68 (38-126) U/L Total Protein 6.7 (6.3-8.2) g/dL Albumin 4.1 (3.5-5.0) g/dL Blood Type Blood Type Recheck Bld Type Recheck Status Antibody Screen Spec Expiration Date 12/04/21 Range/Units 03:14 WBC (3.8-10.6) k/uL RBC (3.80-5.40) m/uL Hgb (11.4-16.0) gm/dL Hct (34.0-46.0) % MCV (80.0-100.0) fL MCH (25.0-35.0) pg MCHC (31.0-37.0) g/dL RDW (11.5-15.5) % Plt Count (150-450) k/uL MPV Neutrophils % % Lymphocytes % % Monocytes % % Eosinophils % % Basophils % % Neutrophils # (1.3-7.7) k/uL Lymphocytes # (1.0-4.8) k/uL Monocytes # (0-1.0) k/uL Eosinophils # (0-0.7) k/uL Basophils # (0-0.2) k/uL PT (9.0-12.0) sec INR (<1.2) APTT (22.0-30.0) sec Sodium (137-145) mmol/L Potassium (3.5-5.1) mmol/L Chloride (98-107) mmol/L Carbon Dioxide (22-30) mmol/L Anion Gap mmol/L BUN (7-17) mg/dL Creatinine (0.52-1.04) mg/dL Est GFR (CKD-EPI)AfAm (>60 ml/min/1.73 sqM) Est GFR (CKD-EPI)NonAf (>60 ml/min/1.73 sqM) Glucose (74-99) mg/dL Calcium (8.4-10.2) mg/dL Total Bilirubin (0.2-1.3) mg/dL AST (14-36) U/L ALT (4-34) U/L Alkaline Phosphatase (38-126) U/L Total Protein (6.3-8.2) g/dL Albumin (3.5-5.0) g/dL Blood Type O Positive Blood Type Recheck O Pos Bld Type Recheck Status No Antibody Screen NEGATIVE Spec Expiration Date 12/07/20212313 - EKG Data EKG Comments: Sinus rhythm with a rate of 67, right bundle branch block, no evidence of acute changes. QRS duration is 134 ms. Normal intervals otherwise. (Fer Barajas) Disposition Time of Disposition: 02:17 - Out of Hospital Transfer - Req. Specs Out of Hospital Transfer - Requested Specifics: Other Emergency Center <Fer Barajas - Last Filed: 12/04/21 03:44> <Beltran Keys - Last Filed: 12/06/21 05:23> Clinical Impression: Closed fracture of distal end of right femur, Fall Narrative: Comminuted distal right femur fracture post mechanical fall (Fer Barajas) Disposition: OTHER INSTITUTION NOT DEFINED Condition: Fair Referrals: Zachary Figueroa [Primary Care Provider] - 1-2 days
[2021-12-04] MEDS ORDERED: ONDANSETRON 4 MG/2 ML VIAL IVP STA (01:31)
[2021-12-04] MEDS ORDERED: HYDROmorphone 1 MG/ML 1 ML SYRINGE IVP STA ×2 (01:31→03:17)
--- NOTE | 2021-12-04 02:30 | XR ---
EXAMINATION TYPE: XR chest 1V DATE OF EXAM: 12/04/2021 COMPARISON: NONE HISTORY: Fall. Pain TECHNIQUE: Single view FINDINGS: There is no heart failure nor confluent pneumonic infiltrate. Costophrenic angles are clear . Thoracic aorta is atheromatous. Bony thorax is intact. IMPRESSION: No active cardiopulmonary disease. Atheromatous aorta.
--- NOTE | 2021-12-04 02:31 | XR ---
EXAMINATION TYPE: XR pelvis AP view DATE OF EXAM: 12/04/2021 COMPARISON: NONE HISTORY: Pain. Fall TECHNIQUE: Renal view FINDINGS: Pelvic ring is intact. There is right hip prosthesis. Sacroiliac joints are intact. The pro ximal left femur is intact. There is left hip joint space narrowing and spur formation. IMPRESSION: There is some mild osteoarthritis in the left hip joint. No fracture.
--- NOTE | 2021-12-04 02:33 | XR ---
EXAMINATION TYPE: XR knee limited RT DATE OF EXAM: 12/04/2021 COMPARISON: NONE HISTORY: Fall. Pain TECHNIQUE: 2 view FINDINGS: There is comminuted fracture of the supracondylar distal right femur. Fracture line appears to extend into the intercondylar distal femur. There is no dislocation at the knee joint. There is n arrowing of knee joint spaces. IMPRESSION: Comminuted supracondylar fracture of the distal right femur. Osteoarthritis.
--- NOTE | 2021-12-04 02:34 | XR ---
EXAMINATION TYPE: XR femur RT DATE OF EXAM: 12/04/2021 COMPARISON: NONE HISTORY: Pain. Fall. TECHNIQUE: 4 views FINDINGS: There is right hip prosthesis with components in anatomic position. There is comminuted sup racondylar fracture of the distal right femur. There appears to be fracture line extending into the i ntercondylar distal femur. There is no dislocation. IMPRESSION: Severely comminuted supracondylar fracture of the distal right femur.
[2021-12-04] MEDS ORDERED: LORazepam 2 MG/ML INJ IV STA (03:17)
[2021-12-04] MEDS ORDERED: DIAZEPAM 5 MG/ML 2 ML INJ IVP STA (03:18)
[2021-12-04] MEDS ORDERED: HYDROmorphone 0.5 MG/0.5 ML SYRINGE IVP STA (03:18)
[2021-12-04 03:38] LABS: Albumin 4.1 g/dL (3.5-5.0); Basophils % (A) 0 %; Calcium 9.2 mg/dL (8.4-10.2); Eosinophils # (A) 0.1 k/uL (0-0.7); Eosinophils % (A) 0 %; HCT 34.7 % (34.0-46.0); HGB 11.9 gm/dL (11.4-16.0); Lymphocytes # (A) 1.4 k/uL (1.0-4.8); Lymphocytes % (A) 7 %; MCHC 34.3 g/dL (31.0-37.0); MCV 90.3 fL (80.0-100.0); Mean Platelet Volume 9.2; Monocytes % (A) 5 %; Neutrophils # (A) 16.8 k/uL (1.3-7.7); Neutrophils % (A) 87 %; Platelet Count 220 k/uL (150-450); Potassium 3.6 mmol/L (3.5-5.1); RBC 3.84 m/uL (3.80-5.40); RDW 12.7 % (11.5-15.5); Total Bilirubin 0.8 mg/dL (0.2-1.3); Total Protein 6.7 g/dL (6.3-8.2); WBC 19.3 k/uL (3.8-10.6)
[2021-12-04] MEDS ORDERED: SODIUM CHLORIDE 0.9% 1,000 ML IV ONE (03:41)
[2021-12-04] MEDS ORDERED: SODIUM CHLORIDE 0.9% 1,000 ML IV SCH (03:45)
[2021-12-04] MEDS ORDERED: ACETAMINOPHEN IV (For NPO) 1,000 MG in SALINE 100 100ML.BAG IVPB ONE (04:00)
[2021-12-04 04:05] LABS: Partial Thromboplastin Time 22.2 sec (22.0-30.0); Prothrombin Time 11.1 sec (9.0-12.0)
[2021-12-04 04:23] VITALS: BP 130/69; PULSE 65
== END 2021-12-04 04:55 | disposition other institution (70) ==
LOC: EC 00:28
DX: S72.491A Other fracture of lower end of right femur, initial encounter for closed fracture (principal); N18.30 Chronic kidney disease, stage 3 unspecified; Z79.82 Long term (current) use of aspirin; Z85.820 Personal history of malignant melanoma of skin; Z90.710 Acquired absence of both cervix and uterus; Z87.891 Personal history of nicotine dependence; W18.30XA Fall on same level, unspecified, initial encounter
CPT/HCPCS: 99285; 96374; 96375 ×2; 96376; 96361; 96372; 36415; 93005; 86900; 86901; 80053; 85025; 85610; 85730; 86850; 72170; 73552; 73560; 71045; J2270; J2405; J1170 ×2; J0131

== ENCOUNTER → 2022-04-30 | Outpatient (CLI) | payer MEDICARE ==
--- NOTE | 2022-05-02 12:30 | BD ---
EXAMINATION TYPE: Axial Bone Density DATE OF EXAM: 04/30/2022 COMPARISON: FIRST BONE DENSITY, BASELINE CLINICAL HISTORY: 77 years year old Female. ICD-10 CODE: Z13.820 SCREENING OSTEOPOROSIS Height: 60.8 Weight: 199 FRAX RISK QUESTIONS: History of Fracture in Adulthood: YES Secondary Osteoporosis: YES 3. Menopause before 45: YES, 41 RISK FACTORS HISTORY OF: November RT FEMUR SHATTERED, EDE AND SCREWS, History of Wrist Fracture: LT WRIST AT 39 YRS OLD Surgery to LAMINECTOMY LOWER BACK, LT HIP REPLACEMENT PT IS RIGHT HANDED, BUT HAS HAD FX OF LT WRIST, RT WRIST IS THE ONLY AREA LEFT TO SCAN, Postmenopausal woman: HYST AT AGE 41 YRS OLD Lost more than 2 inches in height since high school: YES Frequent falls: USING WALKER Hyperparathyroidism: NO Adrenal Insufficiency: NO MEDICATIONS: Additional Medications: BP MED, CYMBALTA, TOPICAL CHEM FOR SKIN CA, VIT D AND CALCIUM Additional History: HYPERTENSION, THR...LT, FEMORAL EDE RT, HX OF LT WRIST FX, SKIN CA, ANXIETY, CAN ONLY SCAN RT WRIST EXAM MEASUREMENTS: Bone mineral densitometry was performed using the [employer]. LAMINECTOMY L/S SPINE IN THE 90s RT FEMORAL RODDING, SHATTERED FEMUR...2021 LT TOTAL HIP REPLACEMENT....IN HER 60s Bone mineral density about the R Wrist (g/cm2): 0.476 LT WRIST FX IN HER 40s T Score values are as follows: -----Dist. R+U: -3.1 -----Prox. R+U: -2.5 -----Radius total: -3.3 Bone mineral density FIRST BONE DENSITY.....BASELINE STUDY FRAX%s: HIPS NOT SCANNED SURGICAL REPLACEMENTS IMPRESSION: Osteoporosis (T Score less than -2.5). There is increased fracture risk and therapy is usually indicated based on age. Re-Screen 1-2 years. NOTE: T-SCORE=SD OF THE YOUNG ADULT MEAN.
== END | disposition home or self-care (01) ==
LOC: RADBDWWP 10:25
PROVIDERS: ATTEND Family Medicine
DX: M81.0 Age-related osteoporosis without current pathological fracture (principal)
CPT/HCPCS: 77081

== ENCOUNTER → 2024-03-25 | Outpatient (CLI) | payer MEDICARE ==
--- NOTE | 2024-03-25 16:30 | US ---
EXAMINATION TYPE: US kidneys/renal and bladder DATE OF EXAM: 03/25/2024 COMPARISON: Renal ultrasound 11/29/2019 CLINICAL INDICATION: Female, 79 years old with history of N18.30 CHRON KID DISEASE STAGE 3; CKD 3 EXAM MEASUREMENTS: Right Kidney: 14.6 x 6.3 x 6.7 cm Left Kidney: 9.7 x 4.3 x 3.7 cm Right Kidney: multiple anechoic areas largest mid pole 4.7 x 4.5 x 5.1 cm. Left Kidney: 2 anechoic areas lower pole largest 3.1 x 2.6 x 2.6 cm. Bladder: Not fully distended There is no evidence for hydronephrosis at this point in time. No nephrolithiasis is seen. Multiple thin-walled anechoic cysts identified within the right kidney with largest in the midpole measuring u p to 5.1 cm. There are 2 anechoic thin-walled cysts identified with the left kidney with largest in t he lower pole measuring up to 3.1 cm. Cortical medullary differentiation appears maintained. The urin [place] bladder is underdistended and not visualized. IMPRESSION: 1. No hydronephrosis or nephrolithiasis identified. 2. Redemonstration of bilateral simple appearing renal cysts.
== END | disposition home or self-care (01) ==
LOC: RADUSWWP 15:47
PROVIDERS: ATTEND Internal Medicine
DX: N18.30 Chronic kidney disease, stage 3 unspecified (principal); N28.1 Cyst of kidney, acquired
CPT/HCPCS: 76770